=== PATIENT | male | born 1985 | race African-American/Black ===

== ENCOUNTER 2020-07-14 00:56 | Emergency (ER) | payer MEDICAID, OTHER ==
[~2020-07-14] VITALS: Ht 175.3 cm; Wt 100.0 kg
[2020-07-14] MEDS ORDERED: NAPR-681 MT (03:03)
[2020-07-14 03:18] VITALS: BP 130/88
== END 2020-07-14 03:22 | disposition home or self-care (01) ==
LOC: ER 00:56
DX: J02.9 Acute pharyngitis, unspecified (principal); Z20.822 Contact with and (suspected) exposure to COVID-19
CPT/HCPCS: 87070; 87430; 99283; C9803; U0003